=== PATIENT | male | born 2000 | race Caucasian/White ===

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

== ENCOUNTER 2020-05-15 17:41 | Emergency (ER) | payer OTHER, SELFPAY ==
[2020-05-15 17:46] VITALS: BP 142/76; PULSE 62; RESP 14; TEMP 36.7; O2SAT 100; BMI 24.3
--- NOTE | 2020-05-15 17:53 | DI.RAD.S_ITS ---
PROCEDURE: XR FOOT RT MIN 3V INDICATIONS: foot pain TECHNIQUE: 3 views of the foot were acquired. COMPARISON: None. FINDINGS: Bones: No fractures or dislocations. No suspicious bony lesions. Soft tissues: No tibiotalar joint effusion. Achilles tendon appears normal. IMPRESSION: No acute radiographic findings. If pain persists, followup imaging in 5-7 days is recommended to exclude occult fracture. Dictated by: Anna Cole M.D. on 05/15/2020 at 18:10 Approved by: Anna Cole M.D. on 05/15/2020 at 18:11
--- NOTE | 2020-05-15 17:57 | ED.LOWEXIN ---
HPI - Extremity Injury (Lower) <GENOVEVA England - Last Filed: 05/15/20 21:07> General Chief Complaint: Extremity Injury, Lower Stated Complaint: thinks broke toe on right foot Time Seen by Provider: 05/15/20 17:43 Source: patient Mode of arrival: Ambulatory Limitations: no limitations History of Present Illness HPI Narrative: 19yo healthy male presents to the emergency department for right foot pain. He states he was hiking 6 days ago, approximately 4 days ago he noticed pain in the top of his left foot. Patient states the pain is worse with pressure to the area. He denies any direct trauma to the area but was unsure if he stubbed his toe. He denies any toe pain, knee injury, fevers, chills, nausea, vomiting, diarrhea, or any other concerns. Patient denies any other previous injuries to his foot in the past. Related Data Previous Rx's Medication Instructions Recorded tramadol 50 mg PO Q6-8H PRN #10 tab 07/01/19 Allergies Allergy/AdvReac Type Severity Reaction Status Date / Time No Known Drug Allergies Allergy Verified 05/15/20 17:51 Review of Systems <GENOVEVA England - Last Filed: 05/15/20 21:07> Review of Systems Narrative: REVIEW OF SYSTEMS: GENERAL: Denies fever or chills. HENT: No head trauma. CARDIOVASCULAR: No chest pain. RESPIRATORY: No shortness of breath. GASTROINTESTINAL: No nausea or vomiting. MUSCULOSKELETAL: Complains of right foot pain, see HPI. INTEGUMENTARY: No rash. NEURO: No numbness, tingling. PSYCH: No behavior or mood changes. Patient History <GENOVEVA England - Last Filed: 05/15/20 21:07> Medical History Healthy adult (Acute) Traumatic rupture of left ear drum (Acute) Surgical History No pertinent past surgical history (Acute) Social History Smoking Status: Never smoker Smoking Status: Never smoker alcohol intake frequency: holidays/special occasions only Substance Use Type: does not use Exam <GEONVEVA England - Last Filed: 05/15/20 21:07> Initial Vital Signs Initial Vital Signs: Vital Signs Temperature 98.1 F 05/15/20 17:46 Pulse Rate 62 05/15/20 17:46 Respiratory Rate 14 05/15/20 17:46 Blood Pressure 142/76 H 05/15/20 17:46 Pulse Oximetry 100 05/15/20 17:46 PHYSICAL EXAMINATION: GENERAL: Well groomed, alert, and cooperative. Answers questions promptly and appropriately. Vital signs noted. HENT: Normocephalic, atraumatic. EYES: Symmetrical, sclera white, no periorbital swelling. CARDIOVASCULAR: Regular rate. RESPIRATORY: Normal respiratory rate, trachea midline, airway patent. No stridor, nasal flaring or accessory muscle use. MUSCULOSKELETAL: Slight swelling and ecchymosis noted to the top of right foot approximately to 1st and 2nd metatarsal, Tenderness with palpation to this area. No tenderness to palpation of big toe. No pain with palpation of ankle or knee. For range of motion of ankle. Normal gait and coordination. Equal tone and mass bilaterally. EXTREMITIES: CMS intact. Pedal pulses 2+ and intact bilaterally. SKIN: Warm, dry, soft, appropriate color for ethnicity. No lesions, rashes, or wounds. NEURO: Alert and Oriented X 3. No sensory deficits. PSYCH: Appropriate affect and mood. <Yohannes Short DO - Last Filed: 05/16/20 01:29> Initial Vital Signs Initial Vital Signs: Vital Signs Temperature 98.1 F 05/15/20 17:46 Pulse Rate 62 05/15/20 17:46 Respiratory Rate 14 05/15/20 17:46 Blood Pressure 142/76 H 05/15/20 17:46 Pulse Oximetry 100 05/15/20 17:46 Course <HildaGENOVEVA Javier - Last Filed: 05/15/20 21:07> Orders Ordered: ED Orders 05/15/20 17:53 XR foot RT min 3V Stat Vital Signs Vital signs: Vital Signs - 8 hr 05/15/20 17:46 Temperature 98.1 F Pulse Rate 62 Respiratory Rate 14 Blood Pressure 142/76 H Pulse Oximetry 100 <Yohannes Short DO - Last Filed: 05/16/20 01:29> Orders Ordered: ED Orders 05/15/20 17:53 XR foot RT min 3V Stat Vital Signs Vital signs: Vital Signs - 8 hr 05/15/20 17:46 Temperature 98.1 F Pulse Rate 62 Respiratory Rate 14 Blood Pressure 142/76 H Pulse Oximetry 100 MDM - Extremity Injury (Lower) <GENOVEVA England - Last Filed: 05/15/20 21:07> Medical Records Attestation: I reviewed the patient's medical records. Lab Data Attestation: I reviewed the patient's lab results. Imaging Data Extremity x-ray #1: Radiologist's Impression: [address] [address] XRay Report Signed Patient: Hector Joshi RMR#: [id number] : 2000Acct:[id number] Age/Sex: 19 / MDate of Service: 05/15/20 Loc: ED Accession Number: [id number] Procedure: XR foot RT min 3V Ordering Provider: Hilda Sanchez PROCEDURE: XR FOOT RT MIN 3V INDICATIONS: foot pain TECHNIQUE: 3 views of the foot were acquired. COMPARISON: None. FINDINGS: Bones: No fractures or dislocations. No suspicious bony lesions. Soft tissues: No tibiotalar joint effusion. Achilles tendon appears normal. IMPRESSION: No acute radiographic findings. If pain persists, followup imaging in 5-7 days is recommended to exclude occult fracture. Dictated by: Anna Cole M.D. on 05/15/2020 at 18:10 Approved by: Anna Cole M.D. on 05/15/2020 at 18:11 [facility] Narrative Medical decision making narrative: 19-year-old male presents to the emergency department for right foot pain, unknown trauma. X-ray negative for fractures. Differential includes foot strain versus soft tissue injury. Patient was encouraged to wear supportive shoes, decreased painful activities, take Tylenol and ibuprofen as needed for pain. Follow-up was encouraged if pain continues. Return precautions given, patient and mother agreed to plan of care verbalized understanding. Discharge Plan Departure Patient Disposition: Home Clinical Impression: Foot sprain Qualifiers: Encounter type: initial encounter Laterality: right Qualified Code(s): S93.601A - Unspecified sprain of right foot, initial encounter Discharge Date/Time: 05/15/20 18:36 Instructions: DI for Foot Sprain Activity Restrictions/Additional Instructions: Thank you for entrusting me with your care today. As discussed, your x-rays negative for any fractures. It is possible that you may have sprain the tendons in your foot. Try to wear supportive shoes for the next few weeks, do not tie your shoe laces too tight as it may bother this area. Elevate your leg when possible, use ibuprofen for swelling and pain. Follow-up with your primary care provider in 2-4 weeks for further evaluation if symptoms continue. Return emergency department for any new or worsening symptoms such as severe pain, chest pain, shortness of breath, high fevers, or any other concerns. Prescriptions: No Action tramadol 50 mg tablet 50 mg PO Q6-8H PRN (Reason: pain) Qty: 10 RF: 0 <Yohannes Short DO - Last Filed: 05/16/20 01:29> Cosign ED Attending Cosignature Attestation: I was immediately available in the department for consultation. This documentation has been reviewed and I agree with assessment and plan. Supervised by Yohannes Short DO
== END 2020-05-15 18:36 | disposition home or self-care (01) ==
PROVIDERS: Emergency Provider Nurse Practitioner
DX: S93.601A Unspecified sprain of right foot, initial encounter (principal)
CPT/HCPCS: 73630; 99283